=== PATIENT | female | born 1980 | race Caucasian/White ===

== ENCOUNTER 2024-05-25 09:48 | Outpatient (OUT) | payer OTHER, SELFPAY ==
--- NOTE | 2024-05-25 09:59 | XR_ITS ---
[facility] [place] [id number] Patient Name: KALEE ROWLAND MRN: [id number] date: 1980 Sex: F Assigned Patient Location: [facility] Current Patient Location: [facility] Accession/Order Number: [id number] Exam Date: 05/25/2024 12:07 Report Date: 05/25/2024 12:12 At the request of: EMERSON CANCINO MD Procedure: XR lumbar spine 2-3V LUMBAR SPINE - 2 views COMPARISON: CLINICAL DATA: Patient fell a month ago and has back pain since then. AP and lateral views were obtained. There is no acute fracture or dislocation. There is no disproportionate disc space narrowing. Mild marginal spurring and minimal facet disease are seen. The SI joints are intact. No paraspinal soft tissue abnormalities are present. XR/XR lumbar spine 2-3V IMPRESSION: MILD DEGENERATIVE CHANGES. Impression dictated by: Yodit Curtis M.D.05/25/2024 12:12 PM Dictation Location: [employer] Electronically authenticated by: [id number] Y Date: 05/25/2024 12:12
== END 2024-05-25 09:49 | disposition home or self-care (01) ==
LOC: RAD 09:53
PROVIDERS: PCP Family Medicine; Visit Provider Family Medicine
DX: M54.50 Low back pain, unspecified (principal); G89.29 Other chronic pain
CPT/HCPCS: 72100

== ENCOUNTER 2024-08-09 12:07 | Emergency (ER) | payer OTHER, SELFPAY ==
[2024-08-09 12:16] VITALS: BP 126/65; PULSE 72; TEMP 36.6; O2SAT 97; BMI 44.2
--- NOTE | 2024-08-09 13:21 | ED.GENADUL1 ---
HPI HPI - General Adult General Chief complaint: Headache Stated complaint: MIGRAINE Time Seen by Provider: 08/09/24 13:21 Source: patient and family Mode of arrival: walk-in Limitations: no limitations History of Present Illness HPI narrative: The patient 43-year-old female with history of migraines she mentioned that she had migraine yesterday went to an urgent care with a provided her with IV medication after which she was feeling better. But again this morning she started having headache again The patient denies any nausea vomiting or any other concerns but she did have some discomfort in her both of her ears and she thought it could be secondary to allergy Related Data Home Medications ?Medication ?Instructions ?Recorded ?Confirmed alprazolam 1 mg tablet 1 mg PO TID PRN anxiety 08/09/24 08/09/24 fluoxetine 40 mg capsule 40 mg PO DAILY 08/09/24 08/09/24 lamotrigine 25 mg tablet 50 mg PO BEDTIME 08/09/24 08/09/24 montelukast 10 mg tablet 10 mg PO DAILY 08/09/24 08/09/24 norgestimate-ethinyl estradiol 1 tab PO DAILY 08/09/24 08/09/24 0.18mg/0.215mg/0.25mg-0.035mg(28)tablet omeprazole 40 mg capsule,delayed 40 mg PO DAILY 08/09/24 08/09/24 release oxybutynin chloride 10 mg 10 mg PO DAILY 08/09/24 08/09/24 tablet,extended release 24 hr rizatriptan 10 mg disintegrating 10 mg PO PRN 08/09/24 08/09/24 tablet spironolactone 50 mg tablet 50 mg PO DAILY 08/09/24 08/09/24 topiramate 100 mg tablet 100 mg PO BID 08/09/24 08/09/24 Previous Rx's ?Medication ?Instructions ?Recorded azithromycin 250 mg tablet See Rx Instructions PO .COMPLEX #6 08/09/24 (Zithromax Z-Charlie) tabs fluticasone propionate 50 1 spray intranasal Q12H #16 grams 08/09/24 mcg/actuation nasal spray,suspension (24 Hour Allergy Relief) methylprednisolone 4 mg tablets in 4 mg PO .as prescribed #21 ea 08/09/24 a dose pack (Medrol (Charlie)) Allergies Allergy/AdvReac Type Severity Reaction Status Date / Time amoxicillin AdvReac Mild Rash Verified 08/09/24 12:14 clindamycin AdvReac Mild Swelling Verified 08/09/24 12:14 of Lip/Tongue/Throat Opioid HPI Opioid Management Most Recent Opioid Data: Last Pain Scale 6 Today, 15:16 Last ED Pain Assessment Today, 15:16 Last MAR Pain Assessment Today, 14:17 Review of Systems ROS Status of ROS 10 or more systems reviewed and unremarkable except as noted in history and below Exam Narrative Exam Narrative: Nurses notes and vital signs reviewed and patient is not hypoxic. General: Well-appearing and in no apparent distress. Skin: Warm, dry, no pallor noted. No rash. Head: Normocephalic, atraumatic. Neck: Supple, non-tender. Eye: Pupils are equal, round and EOMI. No scleral icterus. Ears, Nose, Mouth, and Throat left ear evaluation showed that the patient have erythema of the tympanic membrane bulging, right ear evaluation was normal, oral mucosa is moist, no posterior oropharynx erythema, uvula is mid-line Cardiovascular: Regular Rate and Rhythm without murmur, gallop or rub. Respiratory: No accessory muscle use or respiratory distress. Lungs are clear to auscultation, no wheezing, rales or rhonchi Chest Wall: no tenderness Back: No midline thoracic or lumbar vertebral tenderness. No CVA tenderness Musculoskeletal: normal ROM, no calf or popliteal tenderness, no lower extremity edema/swelling GI: Abdomen is soft, non-distended. Normal bowel sounds. No masses appreciated. No tenderness to palpation. No rebound, guarding, or rigidity noted. Neurological: A&O x4. No cranial nerve dysfunction observed. No truncal ataxia. Moves all extremities. Sensation intact. Psychiatric: Cooperative and interactive. Normal mood and affect. Constitutional Vital Signs, click to edit/add: Last Vital Signs Temp 97.9 F 08/09/24 12:16 Pulse 76 08/09/24 16:20 Resp 18 08/09/24 16:20 BP 126/65 08/09/24 12:16 Pulse Ox 98 08/09/24 16:20 O2 Del Method Room Air 08/09/24 16:20 Course Vital Signs Vital signs: Vital Signs Temperature 97.9 F 08/09/24 12:16 Pulse Rate 72 08/09/24 12:16 Respiratory Rate 18 08/09/24 12:16 Blood Pressure 126/65 08/09/24 12:16 Pulse Oximetry 97 08/09/24 12:16 Oxygen Delivery Method Room Air 08/09/24 12:16 Temperature 97.9 F 08/09/24 12:16 Pulse Rate 76 08/09/24 16:20 Respiratory Rate 18 08/09/24 16:20 Blood Pressure 126/65 08/09/24 12:16 Pulse Oximetry 98 08/09/24 16:20 Oxygen Delivery Method Room Air 08/09/24 16:20 Medical Decision Making MDM Narrative Medical decision making narrative: The patient CT of the head showed no acute pathology The patient was treated in the ER with Toradol IV as well as Compazine Patient discharged home with Medrol Dosepak as well as Z-Charlie for her left ear as possible otitis media The patient is to follow up with primary care physician in next 2-3 days or to return to the emergency department should any of the signs or symptoms worsen or new symptoms develop. The patient agrees with the following Diagnosis and Treatment plan and the patient will be discharged home. Discharge Plan Discharge Chief Complaint: Headache Clinical Impression: Migraine, Otitis media Patient Disposition: Home, Self-Care Time of Disposition Decision: 16:03 Condition: Good Prescriptions / Home Meds: New azithromycin [Zithromax Z-Charlie] 250 mg tablet See Rx Instructions .ROUTE .COMPLEX Qty: 6 0RF Rx Instructions: For 250 mg dose pack: take 500 mg today (day 1), then 250 mg for 4 days (days 2-5) methylprednisolone [Medrol (Charlie)] 4 mg tablets,dose pack 4 mg PO .as prescribed Qty: 21 0RF Rx Instructions: please follow the medrol dose pack instructions fluticasone propionate [24 Hour Allergy Relief] 50 mcg/actuation spray,suspension 1 spray intranasal Q12H Qty: 16 0RF Rx Instructions: administer into each nostril No Action alprazolam 1 mg tablet 1 mg PO TID PRN (Reason: anxiety) fluoxetine 40 mg capsule 40 mg PO DAILY lamotrigine 25 mg tablet 50 mg PO BEDTIME montelukast 10 mg tablet 10 mg PO DAILY norgestimate-ethinyl estradiol 0.18/0.215/0.25 mg-0.035mg (28) tablet 1 tab PO DAILY omeprazole 40 mg capsule,delayed release(DR/EC) 40 mg PO DAILY oxybutynin chloride 10 mg tablet extended release 24hr 10 mg PO DAILY rizatriptan 10 mg tablet,disintegrating 10 mg PO PRN spironolactone 50 mg tablet 50 mg PO DAILY topiramate 100 mg tablet 100 mg PO BID Print Language: Italian Instructions: Migraine Headache (ED), Ear Infection (ED) Referrals: Kailash Martinez MD [Primary Care Provider, Family Practice] - 1 week Discharge Date/Time: 08/09/24 16:21
[2024-08-09] MEDS: DEXAMETHASONE SOD PHOS 10 MG/ML VIAL IV (14:17)
[2024-08-09] MEDS: PROCHLORPERAZINE 10 MG/2 ML VIAL IV (14:17)
[2024-08-09] MEDS: KETOROLAC TROMETHAMINE 30 MG/ML VIAL 15 MG IVP (14:17)
[2024-08-09 16:20] VITALS: PULSE 76; O2SAT 98
== END 2024-08-09 16:21 | disposition home or self-care (01) ==
PROVIDERS: Emergency Provider Emergency Medicine; PCP Family Medicine
DX: G43.909 Migraine, unspecified, not intractable, without status migrainosus (principal); H66.90 Otitis media, unspecified, unspecified ear
CPT/HCPCS: 70450; 96374; 96375; 99285; J0780; J1100; J1885